=== PATIENT | male | born 1935 | race Caucasian/White ===

== ENCOUNTER 2025-02-28 13:24 | Outpatient (CLI) | payer OTHER, SELFPAY ==
[2025-02-28 14:00] LABS: Estimated Glomerular Filt Rate 73 ml/min
--- NOTE | 2025-02-28 14:00 | CRLHL7_ITS ---
For Patients: As a result of the Century Cures Act, medical imaging exams and procedure reports are released immediately into your electronic medical record. You may view this report before your referring provider. If you have questions, please contact your health care provider. INDICATION: 1 YEAR FOLLOW UP OF NODULE ON KIDNEY TECHNIQUE: CT abdomen and pelvis urogram without and with 102 cc Omnipaque 350 IV contrast. Contrast images were obtained in the nephrographic and delayed phases. COMPARISON: None. FINDINGS: The kidneys appears similar with bilateral water attenuation nonenhancing cysts. Similar 8 millimeter hypodensity within the lower pole of the right kidney without clear enhancement on the current study. Left renal cortical thinning. No hydronephrosis. Stable right renal artery aneurysm. Similar appearance of the left adrenal gland. Calcified granulomas in the spleen. No intrahepatic mass. No calcified gallstones. Normal pancreas. Mild fibrotic changes in both lung bases. No bowel obstruction. No bladder stones. Prostate is mildly prominent. No adenopathy. Left inguinal hernia containing fat. Degenerative disc disease lower lumbar spine. IMPRESSION: 1. No significant change compared to the prior study. 2. 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 Please note that all CT scans at this facility use dose modulation, iterative reconstruction, and/or weight-based dosing when appropriate to reduce radiation dose to as low as reasonably achievable. Dictated by Ben Zee MD @ 02/28/2025 3:35:31 PM (Electronically Signed)
== END 2025-02-28 13:25 | disposition home or self-care (01) ==
PROVIDERS: Visit Provider Nurse Practitioner Family
DX: N28.89 Other specified disorders of kidney and ureter (principal)
CPT/HCPCS: 36415; 74178; 82565; Q9967